=== PATIENT | male | born 1970 ===

== ENCOUNTER 2024-11-10 15:25 | Outpatient (CLI) | payer BC, SELFPAY | END 2024-11-10 15:26 | disposition home or self-care (01) | LOC: NFLDREF 11-16 09:43 | PROVIDERS: PCP Family Medicine; Referring Provider Family Medicine; Visit Provider Family Medicine | DX: Z00.00 Encounter for general adult medical examination without abnormal findings; Z13.220 Encounter for screening for lipoid disorders | CPT/HCPCS: 80053; 80061 ==